=== PATIENT | female | born 1935 | race Caucasian/White ===

== ENCOUNTER 2023-11-08 19:12 | Inpatient (IN) | payer OTHER, BC ==
[2023-11-08 20:04] VITALS: BMI 21.9
[2023-11-08 22:35] LABS: BASO % 0.3 % (0-2.0); HEMATOCRIT 26.2 % (32.4-45.2); HEMOGLOBIN 8.7 GM/dL (10.7-15.3); LYMPH % 10.1 % (8-40); MCH 32.1 pg (25.7-33.7); MCHC 33.3 g/dl (32.0-36.0); MEAN CELL VOLUME 96.3 fl (80-96); MEAN PLT VOLUME 7.3 fl (7.5-11.1); NEUT % 79.6 % (42.8-82.8); PLATELET COUNT 251 10^3/uL (134-434); RBC 2.72 M/mm3 (3.60-5.2); RDW 14.7 % (11.6-15.6); WHITE BLOOD COUNT 9.7 K/mm3 (4.0-10.0)
[2023-11-08 22:41] LABS: EPI CELLS >36 /uL (0-25.1); HYALINE CASTS 14 /uL (0-3.1); URINE APPEARANCE TURBID; URINE BACTERIA 954 /uL (0-1359); URINE BILIRUBIN NEGATIVE (NEGATIVE); URINE COLOR RED; URINE GLUCOSE (UA) NEGATIVE (NEGATIVE); URINE KETONE NEGATIVE (NEGATIVE); URINE LEUK ESTERASE 2+ (NEGATIVE); URINE NITRITE NEGATIVE (NEGATIVE); URINE PROTEIN 3+ (NEGATIVE); URINE RBC 150 /uL (0-23.9); URINE UROBILINOGEN 0.2 mg/dL (0.2-1.0); URINE WBC 11 /uL (0-25.8)
[2023-11-08 23:02] LABS: POTASSIUM 5.6 mmol/L (3.5-5.1)
[2023-11-08 23:04] LABS: CALCIUM 7.9 mg/dL (8.5-10.1)
[2023-11-08 23:05] LABS: ALBUMIN 2.6 g/dl (3.4-5.0); BLOOD UREA NITROGEN 20.8 mg/dL (7-18)
[2023-11-08 23:06] LABS: INR 1.21 (0.83-1.09)
[2023-11-08 23:08] LABS: CREATININE 1.1 mg/dL (0.55-1.3)
[2023-11-08 23:09] LABS: ACTIVATED PTT 29.5 SECONDS (25.2-36.5)
[2023-11-08 23:10] LABS: BILIRUBIN,TOTAL 0.7 mg/dL (0.2-1); TOT PROT 6.6 g/dl (6.4-8.2)
[2023-11-09] MEDS ORDERED: CEFTRIAXONE 1 GM/50 ML BAG ONE (00:20)
[2023-11-09] MEDS: CEFTRIAXONE 1,000 MG in DEXTROSE 5%-WATER - 50 ML IVPB ONE (00:30)
[2023-11-09] MEDS: DEXTROSE 5%-NORMAL SALINE 1,000 ML IV SCH (01:15)
[2023-11-09 02:21] LABS: BASO % 0.4 % (0-2.0); HEMATOCRIT 24.8 % (32.4-45.2); HEMOGLOBIN 8.3 GM/dL (10.7-15.3); LYMPH % 12.2 % (8-40); MCH 31.9 pg (25.7-33.7); MCHC 33.5 g/dl (32.0-36.0); MEAN CELL VOLUME 95.2 fl (80-96); MEAN PLT VOLUME 7.1 fl (7.5-11.1); MONO % 8.9 % (3.8-10.2); NEUT % 78.5 % (42.8-82.8); PLATELET COUNT 233 10^3/uL (134-434); RBC 2.61 M/mm3 (3.60-5.2); RDW 14.6 % (11.6-15.6); WHITE BLOOD COUNT 8.3 K/mm3 (4.0-10.0)
[2023-11-09 07:34] LABS: BASO % 0.2 % (0-2.0); EOS % 0.1 % (0-4.5); HEMATOCRIT 26.7 % (32.4-45.2); HEMOGLOBIN 8.9 GM/dL (10.7-15.3); MCHC 33.2 g/dl (32.0-36.0); MEAN CELL VOLUME 96.4 fl (80-96); MEAN PLT VOLUME 7.5 fl (7.5-11.1); MONO % 9.3 % (3.8-10.2); NEUT % 78.4 % (42.8-82.8); PLATELET COUNT 234 10^3/uL (134-434); RBC 2.77 M/mm3 (3.60-5.2); RDW 14.6 % (11.6-15.6); WHITE BLOOD COUNT 8.4 K/mm3 (4.0-10.0)
[2023-11-09 08:04] LABS: POTASSIUM 3.6 mmol/L (3.5-5.1)
[2023-11-09 08:11] LABS: CALCIUM 7.8 mg/dL (8.5-10.1)
[2023-11-09 08:12] LABS: BLOOD UREA NITROGEN 18.4 mg/dL (7-18); MAGNESIUM 2.1 mg/dL (1.8-2.4)
[2023-11-09 08:15] LABS: CREATININE 0.9 mg/dL (0.55-1.3); PHOSPHOROUS 2.8 mg/dL (2.5-4.9)
[2023-11-09] MEDS: TOPIRAMATE 25 MG TABLET PO SCH (12:04)
[2023-11-09] MEDS: MULTIVITAMINS THER W-MINERALS COMBO TABLET (FP) PO SCH (12:04)
[2023-11-09 20:05] LABS: HEMATOCRIT 27.4 % (32.4-45.2); HEMOGLOBIN 9.3 GM/dL (10.7-15.3); MCH 30.7 pg (25.7-33.7); MCHC 33.8 g/dl (32.0-36.0); MEAN PLT VOLUME 7.4 fl (7.5-11.1); PLATELET COUNT 236 10^3/uL (134-434); RBC 3.01 M/mm3 (3.60-5.2); RDW 18.5 % (11.6-15.6); WHITE BLOOD COUNT 7.1 K/mm3 (4.0-10.0)
[2023-11-09] MEDS: CEFTRIAXONE 1 GM in DEXTROSE 5%-WATER - 50 ML IVPB SCH (21:38)
[2023-11-09] MEDS: SERTRALINE HCL 50 MG TABLET (FP) PO SCH (21:38)
[2023-11-10] MEDS: PRIMIDONE 50 MG TABLET PO SCH (00:14)
[2023-11-10] MEDS: LEVOTHYROXINE NA 88 MCG TABLET (FP) PO SCH (06:10)
[2023-11-10 07:41] LABS: BASO % 0.6 % (0-2.0); EOS % 0.7 % (0-4.5); HEMATOCRIT 26.3 % (32.4-45.2); LYMPH % 25.1 % (8-40); MCHC 34.3 g/dl (32.0-36.0); MEAN CELL VOLUME 90.6 fl (80-96); MEAN PLT VOLUME 7.5 fl (7.5-11.1); MONO % 13.8 % (3.8-10.2); NEUT % 59.8 % (42.8-82.8); PLATELET COUNT 251 10^3/uL (134-434); RBC 2.91 M/mm3 (3.60-5.2); RDW 18.9 % (11.6-15.6); WHITE BLOOD COUNT 6.4 K/mm3 (4.0-10.0)
[2023-11-10 07:52] LABS: POTASSIUM 3.6 mmol/L (3.5-5.1)
[2023-11-10 07:56] LABS: CALCIUM 7.7 mg/dL (8.5-10.1)
[2023-11-10 07:57] LABS: ALBUMIN 2.3 g/dl (3.4-5.0); BLOOD UREA NITROGEN 17.7 mg/dL (7-18)
[2023-11-10 08:00] LABS: CREATININE 0.9 mg/dL (0.55-1.3)
[2023-11-10 08:02] LABS: BILIRUBIN,TOTAL 0.3 mg/dL (0.2-1); TOT PROT 5.8 g/dl (6.4-8.2)
[2023-11-10] MEDS: SODIUM CHLORIDE 0.45%/POT 20 MEQ/1,000 ML INFUS.BAG IV SCH (10:35)
[2023-11-11 08:41] LABS: BASO % 0.4 % (0-2.0); EOS % 1.1 % (0-4.5); HEMATOCRIT 30.3 % (32.4-45.2); LYMPH % 24.5 % (8-40); MCH 30.3 pg (25.7-33.7); MCHC 33.1 g/dl (32.0-36.0); MEAN CELL VOLUME 91.7 fl (80-96); MEAN PLT VOLUME 7.5 fl (7.5-11.1); PLATELET COUNT 289 10^3/uL (134-434); RDW 18.3 % (11.6-15.6)
[2023-11-11 08:54] LABS: POTASSIUM 3.4 mmol/L (3.5-5.1)
[2023-11-11 08:55] LABS: CALCIUM 7.6 mg/dL (8.5-10.1)
[2023-11-11 08:56] LABS: ALBUMIN 2.5 g/dl (3.4-5.0)
[2023-11-11 08:59] LABS: CREATININE 0.8 mg/dL (0.55-1.3)
[2023-11-11 09:01] LABS: BILIRUBIN,TOTAL 0.3 mg/dL (0.2-1)
[2023-11-12 09:55] LABS: POTASSIUM 4.1 mmol/L (3.5-5.1)
[2023-11-12 09:57] LABS: BASO % 0.4 % (0-2.0); EOS % 1.1 % (0-4.5); HEMATOCRIT 27.3 % (32.4-45.2); HEMOGLOBIN 9.4 GM/dL (10.7-15.3); LYMPH % 25.1 % (8-40); MCHC 34.3 g/dl (32.0-36.0); MEAN CELL VOLUME 90.5 fl (80-96); MEAN PLT VOLUME 7.6 fl (7.5-11.1); MONO % 10.9 % (3.8-10.2); NEUT % 62.5 % (42.8-82.8); PLATELET COUNT 268 10^3/uL (134-434); RBC 3.01 M/mm3 (3.60-5.2); RDW 17.5 % (11.6-15.6); WHITE BLOOD COUNT 8.5 K/mm3 (4.0-10.0)
[2023-11-12 09:58] LABS: CALCIUM 7.1 mg/dL (8.5-10.1)
[2023-11-12 09:59] LABS: ALBUMIN 2.2 g/dl (3.4-5.0); BLOOD UREA NITROGEN 12.3 mg/dL (7-18)
[2023-11-12 10:02] LABS: CREATININE 0.7 mg/dL (0.55-1.3)
[2023-11-12 10:03] LABS: BILIRUBIN,TOTAL 0.5 mg/dL (0.2-1)
[2023-11-12 10:04] LABS: TOT PROT 5.6 g/dl (6.4-8.2)
[2023-11-12 23:44] VITALS: RESP 18
[2023-11-13 07:42] LABS: BASO % 0.7 % (0-2.0); EOS % 1.5 % (0-4.5); HEMATOCRIT 27.7 % (32.4-45.2); HEMOGLOBIN 9.6 GM/dL (10.7-15.3); LYMPH % 27.8 % (8-40); MCHC 34.4 g/dl (32.0-36.0); MEAN CELL VOLUME 89.9 fl (80-96); MEAN PLT VOLUME 7.1 fl (7.5-11.1); MONO % 10.3 % (3.8-10.2); NEUT % 59.7 % (42.8-82.8); PLATELET COUNT 286 10^3/uL (134-434); RBC 3.08 M/mm3 (3.60-5.2); RDW 16.9 % (11.6-15.6); WHITE BLOOD COUNT 7.7 K/mm3 (4.0-10.0)
[2023-11-13 07:44] LABS: ALBUMIN 2.2 g/dl (3.4-5.0); BLOOD UREA NITROGEN 9.9 mg/dL (7-18)
[2023-11-13 07:46] LABS: BILIRUBIN,TOTAL 0.3 mg/dL (0.2-1); CALCIUM 7.2 mg/dL (8.5-10.1); TOT PROT 5.3 g/dl (6.4-8.2)
[2023-11-13 07:48] LABS: CREATININE 0.8 mg/dL (0.55-1.3)
[2023-11-13 15:23] VITALS: BP 137/73; PULSE 76; TEMP 98.3
== END 2023-11-13 16:55 | DRG 690 ==
LOC: JER 19:12 → JERBED 23:42 → J4S 11-09 02:35
PROVIDERS: ADMIT Internal Medicine; ATTEND Family Medicine
PROC: 30233N1 Transfusion of Nonautologous Red Blood Cells into Peripheral Vein, Percutaneous Approach (ICD-10-PCS; principal; 2023-11-09)
DX: N30.91 Cystitis, unspecified with hematuria (principal); I24.89 Other forms of acute ischemic heart disease; N93.9 Abnormal uterine and vaginal bleeding, unspecified; F03.90 Unspecified dementia, unspecified severity, without behavioral disturbance, psychotic disturbance, mood disturbance, and anxiety; E03.9 Hypothyroidism, unspecified; G40.909 Epilepsy, unspecified, not intractable, without status epilepticus; D64.9 Anemia, unspecified; R31.0 Gross hematuria; B96.20 Unspecified Escherichia coli [E. coli] as the cause of diseases classified elsewhere
CPT/HCPCS: 36415; 36430; 71045-TC-FY; 80048; 80053; 81003; 83735; 84100; 84443; 84484; 85025; 85027; 85610; 85730; 86850; 86900; 86901; 86922; 87086; 87186; 93005; 93010; 99285-25; J3480; P9058